=== PATIENT | female | born 1950 | race Caucasian/White ===

== ENCOUNTER 2020-02-13 17:54 | Emergency (ER) | payer MEDICARE ==
[~2020-02-13] VITALS: Ht 172.7 cm; Wt 95.5 kg
[2020-02-13] MEDS ORDERED: FAMOTIDINE20 M1 PO (18:28)
[2020-02-13] MEDS ORDERED: CVS ESOMEPRAZOL20 MG PO (18:28)
[2020-02-13] MEDS ORDERED: TRAZODONE50 MG PO (18:29)
[2020-02-13] MEDS ORDERED: VENLAFAXINE HCL75 M1 PO (18:30)
[2020-02-13] MEDS ORDERED: ZOLPIDEM5 M1 PO (18:30)
[2020-02-13] MEDS ORDERED: PROBIOTIC MULTI1 TAB PO (19:35)
[2020-02-13] MEDS ORDERED: DOXYCYCLINE100 MG PO (19:35)
[2020-02-13 20:13] VITALS: BP 138/91
== END 2020-02-13 20:13 | disposition home or self-care (01) ==
LOC: ED 17:54
DX: S61.451A Open bite of right hand, initial encounter (principal); L03.113 Cellulitis of right upper limb; F32.9 Major depressive disorder, single episode, unspecified; F41.9 Anxiety disorder, unspecified; W55.01XA Bitten by cat, initial encounter; Y93.K3 Activity, grooming and shearing an animal; Y92.009 Unspecified place in unspecified non-institutional (private) residence as the place of occurrence of the external cause; Z88.0 Allergy status to penicillin